=== PATIENT | female | born 2000 | race Caucasian/White ===

== ENCOUNTER 2021-03-24 19:53 | Emergency (ER) | payer MEDICAID ==
[~2021-03-24] VITALS: Ht 167.6 cm; Wt 63.0 kg
[2021-03-24 21:12] LABS: HEMATOCRIT. 34.2 % (36.0-48.0); HEMOGLOBIN. 11.6 g/dL (12.0-16.0); LYMPHOCYTES % 7.2 % (20.0-50.0); MEAN CORPUSCULAR HEMOGLOBIN 28.3 pg (28.0-32.0); MEAN CORPUSCULAR VOLUME 83.5 fL (81.0-99.0); MEAN PLATELET VOLUME 9.1 fl (7.4-10.4); MONOCYTES % 3.5 % (2.0-8.0); NEUTROPHILS % 89.3 % (40.0-76.0); PLATELET 201 x1000/uL (130-400); RED CELL DISTRIBUTION WIDTH 13.9 % (11.6-14.6)
[2021-03-24 21:15] LABS: CHLORIDE 110 mEq/L (98-107)
[2021-03-24 21:21] LABS: HCG SCREEN NEGATIVE
[2021-03-24 21:37] LABS: CLARITY URINE CLOUDY (CLEAR); COLOR URINE RED (YELLOW); KETONES URINE NEGATIVE (NEGATIVE); LEUKOCYTE ESTERASE URINE 1+ (NEGATIVE); NITRITE URINE NEGATIVE (NEGATIVE); OCCULT BLOOD URINE 3+ (NEGATIVE); PROTEIN URINE 2+ (NEGATIVE); SPECIFIC GRAVITY URINE 1.023 (1.005-1.030); UROBILINOGEN URINE 0.2 E.U./dL (0.2-1.0)
[2021-03-24 22:39] VITALS: BP 112/73
== END 2021-03-24 22:41 | disposition home or self-care (01) ==
LOC: ER 19:53
DX: R55 Syncope and collapse (principal)
CPT/HCPCS: 36415; 71045; 80053; 81003; 82962; 83880; 84484; 84703; 85025; 93005; 99285